=== PATIENT | male | born 1985 | race African-American/Black ===

== ENCOUNTER 2020-01-14 17:52 | Emergency (ER) | payer MEDICARE, MEDICAID, SELFPAY ==
[2020-01-14 18:03] VITALS: BP 147/90; PULSE 77; RESP 20; TEMP 36.9; O2SAT 100
--- NOTE | 2020-01-14 18:47 | ED.GENADULT ---
HPI - General Adult General Chief complaint: Unspecified Stated complaint: lump behind left ear Time Seen by Provider: 01/14/20 17:56 Source: patient Mode of arrival: ambulatory Limitations: no limitations History of Present Illness HPI narrative: Patient is a 34-year-old male who presents with concern of wound to the posterior aspect of the left ear that he noticed last night googled it and was concerned that it could be cancer notes mild discomfort denies history of similar occurrence has not taken anything for his symptoms nor is he been seen for this complaint patient presents per private vehicle Related Data Allergies Allergy/AdvReac Type Severity Reaction Status Date / Time No Known Allergies Allergy Unverified 03/07/17 23:51 Review of Systems Review of Systems: Narrative: CONSTITUTIONAL: Denies fever, chills, or sweats. SKIN: Denies rash or itching. MUSCULOSKELETAL: Denies back pain, joint pain, or myalgia. NEUROLOGIC: Denies headache, dizziness Exam Narrative: Exam Narrative: GENERAL: Well-appearing, well-nourished, and in no acute distress. HEAD: Normocephalic, atraumatic. EYES: PERRLA and EOMI. ENT: Nares clear, no rhinorrhea or epistaxis. Mucous membranes moist. EXTREMITIES: Normal range of motion. No edema. SKIN: Warm, dry, no rash. Small red raised lesion to the posterior left ear less than 1/2 cm no cellulitic changes NEURO: No focal deficits. Alert and oriented x3. PSYCH: Normal mood and affect. Course Course Emergency Course: Patient in the room in no distress aware of case findings treatment plan and diagnosis agreeing to follow-up as directed or to return if symptoms worsen or concerns Vital Signs Vital signs: Vital Signs Temperature 98.5 F 01/14/20 18:03 Pulse Rate 77 01/14/20 18:03 Respiratory Rate 20 01/14/20 18:03 Blood Pressure 147/90 H 01/14/20 18:03 Pulse Oximetry 100 01/14/20 18:03 Temperature 98.5 F 01/14/20 18:03 Pulse Rate 77 01/14/20 18:03 Respiratory Rate 20 01/14/20 18:03 Blood Pressure 147/90 H 01/14/20 18:03 Pulse Oximetry 100 01/14/20 18:03 Medical Decision Making MDM Narrative Medical decision making narrative: Patient with likely insect bite to her small pustule no distress felt appropriate for discharge home Vital Signs Vital Signs: Vital Signs Temperature 98.5 F 01/14/20 18:03 Pulse Rate 77 01/14/20 18:03 Respiratory Rate 20 01/14/20 18:03 Blood Pressure 147/90 H 01/14/20 18:03 Pulse Oximetry 100 01/14/20 18:03 Temperature 98.5 F 01/14/20 18:03 Pulse Rate 77 01/14/20 18:03 Respiratory Rate 20 01/14/20 18:03 Blood Pressure 147/90 H 01/14/20 18:03 Pulse Oximetry 100 01/14/20 18:03 Discharge Plan Discharge Clinical Impression: Visit for wound check Patient Disposition: Home, Self-Care Condition: Stable Instructions: Antibiotic Form, Acute Wounds (DC) Additional Instructions: Follow up with primary care in the next 5 to 7 days Follow patient education sheets return if symptoms worsen or concerns, any increase in redness swelling pain or fever over 100.5 Clean wound with mild soapy water. Apply antibiotic ointment and clean dressing at least three times daily Follow-up/Referrals: Jamie,Emily Newsome MD [Primary Care Provider] -
== END 2020-01-14 19:01 | disposition home or self-care (01) ==
LOC: ANHED 19:03
PROVIDERS: Emergency Provider Emergency Medicine; PCP Family Medicine
DX: S01.302A Unspecified open wound of left ear, initial encounter (principal); X58.XXXA Exposure to other specified factors, initial encounter
CPT/HCPCS: 99281

== ENCOUNTER 2020-05-11 11:07 | Emergency (ER) | payer MEDICARE, MEDICAID, SELFPAY ==
[2020-05-11 11:41] VITALS: RESP 18
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
[2020-05-11] MEDS: LORAZEPAM INJ 2 MG/ML VIAL IM (12:05)
[2020-05-11] MEDS: HALOPERIDOL LACTATE 5 MG/ML VIAL IM (12:05)
--- NOTE | 2020-05-11 12:05 | PC.NURSE ---
While administering medication to Pt. Pt stated to RN that I was a dumb bitch and a Faggot ass . Pt. advised that kind of language is not tolerated here in the ED. See MAR for medication administration. Reason to give medication due to Pt. being uncooperative, hostile, aggressive, and combative towards staff. [facility] security and [place] [employer] at the bedside with Pt.
[2020-05-11 12:19] LABS: Basophils Percent Auto 0.6 % (0.2-1.2); Eosinophils Percent Auto 0.6 % (0-4.4); Hemoglobin 15.5 g/dL (14.0-18.0); Immature Granulocyte Absolute 0.01 K/mm3 (0.00-0.031); Immature Granulocyte Percent A 0.2 % (0-0.5); Immature Platelet Fraction Pct 4.4 % (0.9-11.2); Lymphocytes Absolute Auto 2.57 K/mm3 (0.9-3.2); Lymphocytes Percent Auto 47.7 % (18.3-44.2); Mean Corpuscular HGB Conc 32.3 g/dl (32-36); Mean Corpuscular Hemoglobin 27.7 pg (26-34); Mean Corpuscular Volume 85.9 fl (80-100); Mean Platelet Volume 10.6 fl (7.4-10.4); Monocytes Absolute Auto 0.4 K/mm3 (0.1-0.6); Monocytes Percent Auto 6.7 % (2.6-8.5); Neutrophils Absolute Auto 2.4 K/mm3 (1.3-6.7); Neutrophils Percent Auto 44.2 % (45.5-73.1); Platelet Count Result 185 k/mm3 (150-375); Red Blood Count 5.59 M/mm3 (4.6-6.20); Red Cell Distribution Width 13.7 % (11.5-14.5); White Blood Count 5.4 K/mm3 (4.5-10.0)
[2020-05-11 12:30] LABS: Alanine Aminotransferase 23 U/L (4-50); Albumin Level 4.4 g/dL (3.5-5.1); Alkaline Phosphatase 54 U/L (38-126); Aspartate Amino Transferase 28 U/L (17-59); Bilirubin,Total 0.2 mg/dL (0.2-1.3); Blood Urea Nitrogen 10 mg/dL (9-20); Carbon Dioxide 22 mmol/L (22-30); Chloride 106 mmol/L (98-107); Estimated Glomerular Filt Rate > 60; Glucose 138 mg/dL (75-110); Potassium 4.2 mmol/L (3.4-5.0); Sodium 137 mmol/L (137-145)
[2020-05-11 12:44] LABS: Add Urine Microscopic? YES; Appearance Urine Clear (Clear); Bilirubin Urine Negative (Negative); Blood Urine Negative (Negative); Color Urine Yellow (Yellow); Glucose Urine UA Negative (Negative); Ketones Urine Negative (Negative); Leukocyte Esterase Ur Negative LEU/UL (Negative); Mucus Urine Rare /lpf; Nitrate Urine Negative (Negative); Protein Urine 1+ mg/dL (Negative); RBC Urine 0-2 /hpf (0-2); Specific Grav Ur 1.026 (1.001-1.035); Urobilinogen Urine Negative mg/dL (<2.0); WBC Urine 0-3 /hpf
[2020-05-11 13:00] LABS: Amphetamine Screen Urine Negative (Negative); Barbiturate Screen Urine Negative (Negative); Benzodiazepines Screen Urine Negative (Negative); Cannabinoid Screen Urine Negative (Negative); Cocaine Screen Urine Negative (Negative); Methadone Screen Urine Negative (Negative); Opiate Screen Urine Negative (Negative); Phencyclidine Screen Urine Negative (Negative)
[2020-05-11 13:33] LABS: Ethanol < 10 mg/dL (<10)
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
[2020-05-11 15:05] VITALS: RESP 16
== END 2020-05-11 15:05 | disposition home or self-care (01) ==
PROVIDERS: Emergency Provider Emergency Medicine; PCP Family Medicine
DX: F29 Unspecified psychosis not due to a substance or known physiological condition (principal); F17.200 Nicotine dependence, unspecified, uncomplicated; Z87.820 Personal history of traumatic brain injury; Z79.899 Other long term (current) drug therapy
CPT/HCPCS: 36415; 80053; 80307; 81001; 84443; 85025; 85055; 96372; 99284; J1630; J2060

== ENCOUNTER 2020-08-14 14:42 | Emergency (ER) | payer MEDICARE, MEDICAID, SELFPAY ==
--- NOTE | ~2020-08-14 | XR_ITS ---
EXAMINATION: XR wrist LT min 3V EXAM DATE: 08/14/2020 15:19 INDICATION: Initial encounter following injury, with pain of the left wrist. TECHNIQUE: Frontal, oblique, lateral projections of the left wrist. There is no prior study for mello hatfield. FINDINGS: Acute closed posttraumatic fracture of the left ulnar distal metaphysis which is essential ly nondisplaced. No definite radial fracture identified. Carpal bones are unremarkable. IMPRESSION: Acute left ulnar distal metaphyseal fracture. Reviewed, dictated and finalized at location B.
[2020-08-14 14:47] VITALS: BP 127/78; PULSE 87; RESP 20; TEMP 37; O2SAT 100
--- NOTE | 2020-08-14 15:21 | PC.NURSE ---
Pt acting inappropriate, rambling speech, pacing in waiting room. Mother with pt.
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
--- NOTE | 2020-08-14 17:19 | PC.NURSE ---
Pt refuses wrist splint. States I don't want anything I'm going to have to pay for . Pt in hallway raising voice to staff and PA. Security at bedside.
== END 2020-08-14 17:22 | disposition home or self-care (01) ==
PROVIDERS: Emergency Provider Emergency Medicine; PCP Family Medicine
DX: S59.092A Other physeal fracture of lower end of ulna, left arm, initial encounter for closed fracture (principal); F17.200 Nicotine dependence, unspecified, uncomplicated; Y35.813A Legal intervention involving manhandling, suspect injured, initial encounter
CPT/HCPCS: 73110; 99283

== ENCOUNTER 2021-07-03 04:42 | Emergency (ER) | payer MEDICARE, MEDICAID, SELFPAY ==
[2021-07-03 04:46] VITALS: BP 153/98; PULSE 82; RESP 16; TEMP 36.6; O2SAT 99
--- NOTE | 2021-07-03 05:09 | ED.GENADULT ---
HPI - General Adult General Chief complaint: Unspecified Stated complaint: sore on lip Time Seen by Provider: 07/03/21 05:05 History of Present Illness HPI narrative: Patient 36-year-old gentleman presents emergency department with chief complaint of cold sore. Patient reports that he has history of cold sores and normally takes either acyclovir or valacyclovir patient states has been out of his medication attempted to follow-up with his primary doctor but they are on personal leave and the doctor covering for them is unable to see him until July Related Data Allergies Allergy/AdvReac Type Severity Reaction Status Date / Time No Known Allergies Allergy Verified 08/14/20 15:50 Review of Systems Review of Systems: A 10 system review of systems was completed on the patient and is negative except for what is stated in the HPI. Nursing and ancillary documentation was reviewed. [facility] Past Medical History Medical History (Updated 07/03/21 @ 05:14 by Josue Valencia MD) History of head injury Surgical History Surgical History No pertinent past surgical history Social History Social History Smoking status: Current every day smoker Alcohol intake: never Substance use: never Exam Narrative: GENERAL: Well-appearing, well-nourished, and in no acute distress. HEAD: Normocephalic, atraumatic. EYES: PERRLA and EOMI. ENT: Nares clear, no rhinorrhea or epistaxis. Mucous membranes moist. There are blisters present in the oropharynx on the lip consistent with herpes labialis NECK: Supple. CHEST: Clear to auscultation. No respiratory distress. HEART: Regular rate and rhythm. No murmur heard. Normal peripheral pulses. ABDOMEN: Soft, nontender, nondistended, normal active bowel sounds. EXTREMITIES: Normal range of motion. No edema. SKIN: Warm, dry, no rash. NEURO: No focal deficits. Alert and oriented x3. PSYCH: Normal mood and affect. Course Vital Signs Vital signs: Vital Signs Temperature 36.6 C 07/03/21 04:46 Pulse Rate 82 07/03/21 04:46 Respiratory Rate 16 07/03/21 04:46 Blood Pressure 153/98 H 07/03/21 04:46 Pulse Oximetry 99 07/03/21 04:46 Temperature 36.6 C 07/03/21 04:46 Pulse Rate 82 07/03/21 04:46 Respiratory Rate 16 07/03/21 04:46 Blood Pressure 153/98 H 07/03/21 04:46 Pulse Oximetry 99 07/03/21 04:46 Medical Decision Making Vital Signs Vital Signs: Vital Signs Temperature 36.6 C 07/03/21 04:46 Pulse Rate 82 07/03/21 04:46 Respiratory Rate 16 07/03/21 04:46 Blood Pressure 153/98 H 07/03/21 04:46 Pulse Oximetry 99 07/03/21 04:46 Temperature 36.6 C 07/03/21 04:46 Pulse Rate 82 07/03/21 04:46 Respiratory Rate 16 07/03/21 04:46 Blood Pressure 153/98 H 07/03/21 04:46 Pulse Oximetry 99 07/03/21 04:46 Discharge Plan Discharge Clinical Impression: Herpes labialis Patient Disposition: Home, Self-Care Condition: Stable Instructions: Antibiotic Form, Oral Herpes Simplex Virus Infections (ED) Prescriptions: New acyclovir 400 mg tablet 400 mg PO TID 7 Days Qty: 21 RF: 0 Follow-up/Referrals: Jamie,Emily Newsome MD [Primary Care Provider] - Time of Disposition: 05:15
== END 2021-07-03 05:43 | disposition home or self-care (01) ==
LOC: ANHED 05:22
PROVIDERS: Emergency Provider Emergency Medicine; PCP Family Medicine
DX: B00.1 Herpesviral vesicular dermatitis (principal); F17.200 Nicotine dependence, unspecified, uncomplicated
CPT/HCPCS: 99283

== ENCOUNTER 2023-05-13 15:16 | Emergency (ER) | payer MEDICARE, MEDICAID, SELFPAY ==
[2023-05-13 15:40] VITALS: BP 139/95; PULSE 103; RESP 16; TEMP 36.9; O2SAT 97
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
== END 2023-05-13 16:41 | disposition home or self-care (01) ==
PROVIDERS: Emergency Provider Emergency Medicine; PCP Family Medicine
DX: T21.02XA Burn of unspecified degree of abdominal wall, initial encounter (principal); T31.0 Burns involving less than 10% of body surface; F17.200 Nicotine dependence, unspecified, uncomplicated; Z87.820 Personal history of traumatic brain injury; X10.2XXA Contact with fats and cooking oils, initial encounter
CPT/HCPCS: 99281

== ENCOUNTER 2025-02-05 09:43 | Outpatient (CLI) | payer MEDICARE, SELFPAY ==
--- OUTSIDE RECORDS SUMMARY | 2025-02-05 10:57 | XMS_ITS | Clinical Summary ---
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 08/20/2020 Within the last year, have y ou been raped or forced to have any kind of sexual activity by your partner or ex-partner? No 08/20/2020 Social Connection and Isolation Panel [NHANES] A nswer Date Recorded In a typical week, how many times do you talk on the phone with family, friends, or neighbors? Patient declined 08/20/2020 How often do you get togethe r with friends or relatives? Patient declined 08/20/2020 How often do you attend christian or buddhism serv ices? Patient declined 08/20/2020 Do you belong to any clubs o r organizations such as christian groups, unions, fraternal or athletic groups, or school groups? Patient declined 08/20/2020 How often do you attend meet ings of the clubs or organizations you belong to? Patient declined 08/20/2020 Are you , , di vorced, , never , or living with a partner? Patient declined 08/20/2020 Overall Financial Resource Strain (CARDIA) Answe r Date Recorded How hard is it for you to pa y for the very basics like food, housing, medical care, and heating? Not hard at all 08/20/2020 [facility] of Occupat ional Health - Occupational Stress Questionnaire Answer Date Recorded Do you feel stress - tense, restless, nervous, or anxious, or unable to sleep at night because your mind is troubled all the time - these days? Patient declined 08/20/2020 Exercise Vital Sign Answer Date Recorde d On average, how many days pe r week do you engage in moderate to strenuous exercise (like a brisk walk)? Patient declined On average, how many minutes do you engage in exercise at this level? Patient declined 08/20/2020 Hunger Vital Sign Answer Date Recorded Within the past 12 months, y ou worried that your food would run out before you got the money to buy more. Never true 08/20/20 20 Within the past 12 months, t he food you bought just didn't last and you didn't have money to get more. Never true 08/20/2020 PRAPARE - Transportation Answer Date Re corded In the past 12 months, has l ack of transportation kept you from medical appointments or from getting medications? No 11/2019 In the past 12 months, has l ack of transportation kept you from meetings, work, or from getting things needed for daily living? No 08/20/2020 Housing Stability Vital Sign Answer Melo e Recorded In the last 12 months, was t here a time when you were not able to pay the mortgage or rent on time? No 08/20/2020 Number of Places Lived in the Last Year Not on f ile 08/20/2020 In the last 12 months, was t here a time when you did not have a steady place to sleep or slept in a group home (including now)? No 08/20/2020 Personal Safety Answer Date Recorded Have you ever been in or are you currently in a harmful physical or emotional relationship or is someone making you feel afraid or unsafe? Denies 06/21/2024 Education Answer Date Recorded What is the highest level of school you have completed or the highest degree you have received? 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 Gender Identity Not on file Sexual Orientation Not on file Obstetrics History Last Filed Vital Signs Vital Sign Reading Time Taken Comments Blood Pressure 138/70 06/21/2024 1:25 AM CDT Pulse 124 06/21/2024 1:25 AM CDT Temperature 38 C (100.4 F) 06/21/2024 1:21 AM CDT Respiratory Rate 18 06/21/2024 12:52 AM CDT Oxygen Saturation 96% 06/21/2024 1:25 AM CDT Inhaled Oxygen Concentration - - Weight 119.3 kg (263 lb) 06/21/2024 12:52 AM CDT Height 182.9 cm (6') 06/21/2024 12:52 AM CDT Body Mass Index 35.67 06/21/2024 12:52 AM CDT Plan of Treatment Health Maintenance Due Date Last Done Comments Depression Screening 1987 Hepatitis C Screening 1987 Varicella Vaccines (1 of 2 - 13+ 2-dose series) 01/19/2000 Hepatitis B Screening 2005 Regular Well Visit/Exam 18-64 2005 Pneumococcal vaccine <65 (1 of 2 - PCV) 2006 Covid-19 Vaccine (3 - 2023-2 5 season) 2024 03/31/2021, 02/26/2021 Influenza Vaccine (#1) 2024 0, 09/07/2015, 08/28/2014 DTaP/Tdap/Td Vaccine (3 - Td or Tdap) 12/30/2024 12/30/2014, 11/20/2013 HPV Vaccines Aged Out No longer eligi ble based on patient's age to complete this topic Insurance MEDIC[facility] MEDICARE HMO MEDICARE [place] Advance Directives For more information, please contact: [phone] * Full Code (Latest Code Status on File) Date Activated Date Inactivated Comments 08/19/2020 4:14 PM 09/16/2020 3:53 PM Care Teams Posting Clerk Relationship Specialty Start Date End Date Rose Pineda PA [address] [place] [id number] PCP - General Physician Prefabricated Houses Trimmer 06/21/24
--- OUTSIDE RECORDS SUMMARY | 2025-02-05 10:57 | XMS_ITS | Clinical Summary ---
Author Organization [facility] Address [address] [place] [address] Phone Care Team Providers Care Neonatal Surgeon Name Role Phone Provider, None Primary Care Provider Unavailabl e Allergies No known active allergies Medications traZODone (DESYREL) 100 MG Tablet Take 50 mg by mouth as needed for Sleep. Active chlorhexidine (PERIDEX) 0.12 % Solution Take 15 mL by mouth 2 times daily. 473 mL 0 08/05/2016 Active ibuprofen (MOTRIN) 800 MG Tablet Take 1 Tab by mouth every 8 hours. 30 Tab 0 08/05/2016 Active famotidine (PEPCID) 20 MG Tablet Take 1 Tab by mouth 2 times daily as needed. 30 Tab 0 08/05/2016 Active traZODone (DESYREL) 100 MG Tablet Take 1 Tab by mouth nightly. 15 Tab 0 02/28/2017 Active divalproex (DEPAKOTE) 500 MG Tablet Delayed Response Take 2 Tabs by mouth nightly. 90 Tab 0 03/29/2017 Active Active Problems No known active problems Social History Tobacco Use Types Packs/Day Years Used Date Smoking Tobacco: Every Day Cigarettes Smokeless Tobacco: Never Alcohol Use Standard Drinks/Week Comments No 0 (1 standard drink = 0.6 oz pur e alcohol) Sex and Gender Information Value Date Recorded Sex Assigned at Not on file Legal Sex Male 11:47 PM CDT Gender Identity Not on file Sexual Orientation Not on file Last Filed Vital Signs Vital Sign Reading Time Taken Comments Blood Pressure 128/83 08/18/2020 9:06 AM CDT Pulse 76 08/18/2020 9:06 AM CDT Temperature 36.2 C (97.1 F) 08/18/2020 9:06 AM CDT Respiratory Rate 20 08/18/2020 9:06 AM CDT Oxygen Saturation 100% 08/18/2020 9:06 AM CDT Inhaled Oxygen Concentration - - Weight 119.3 kg (263 lb) 08/18/2020 9:06 AM CDT Height 180.3 cm (5' 11 ) 08/18/2020 9:06 AM CDT Body Mass Index 36.68 08/18/2020 9:06 AM CDT Plan of Treatment Health Maintenance Due Date Last Done Comments Hepatitis C Virus (HCV) Screening 1987 TdaP Immunization 1987 Hepatitis B Immunization (1 of 3 - 19+ 3-dose series) 2006 Influenza Immunization (#1) 2024 SARS-COV-2 Immunization (2023- season) 2024 Respiratory Syncytial Virus (RSV) Immunization (Adult) (1 - 1-dose 75+ series) 2062 Meningococcal Immunization (ACWY) Aged Out No longer eligible based on patient's age to complete this topic Pneumococcal Immunization Combined Aged Out No longer eligible based on patient's age to complete this topic Rotavirus Immunization Aged Out No lo nger eligible based on patient's age to complete this topic Insurance MEDICAID [place] MEDICARE Care Teams Neonatal Surgeon Relationship Specialty Start Date End Date Provider, Natalie GUTHRIE PCP - General 07/05/17
--- OUTSIDE RECORDS SUMMARY | 2025-02-05 10:57 | XMS_ITS | Clinical Summary ---
Author Organization [facility] Address [address] [place] [address] Care Team Providers Care Hoisting Laborer Name Role Phone Unavailable Primary Care Provider Unavailabl e Source Comments [facility],non-owned Affiliates and Associated Physician Practices is amultiple site organization consisting of ambulatory clinics and hospital sitesin [place], [place], [place] and [place]. This disclosure is being madepursuant to the Care Everywhere program and may not contain all information available regarding this patient. Last updated 18.[facility] Social History Tobacco Use Types Packs/Day Years Used Date Smoking Tobacco: Every Day Cigarettes Alcohol Use Standard Drinks/Week Comments Yes 0 (1 standard drink = 0.6 oz pur e alcohol) Sex and Gender Information Value Date Recorded Sex Assigned at Not on file Gender Identity Not on file Sexual Orientation Not on file Last Filed Vital Signs Vital Sign Reading Time Taken Comments Blood Pressure 129/74 02/24/2016 6:30 AM CDT Pulse 71 02/24/2016 6:40 AM CDT Temperature 36.7 C (98.1 F) 02/24/2016 4:34 AM CDT Respiratory Rate 14 02/24/2016 6:40 AM CDT Oxygen Saturation 99% 02/24/2016 6:40 AM CDT Inhaled Oxygen Concentration - - Weight 93 kg (205 lb) 02/24/2016 4:50 AM CDT Height 182.9 cm (6') 02/24/2016 4:50 AM CDT Body Mass Index 27.8 02/24/2016 4:50 AM CDT Plan of Treatment Health Maintenance Due Date Last Done Comments HIV SCREENING 2002 HEPATITIS C SCREENING 01/13/2005 DTAP/TDAP/TD VACCINES (1 - Tdap) 2006 HEPATITIS B VACCINE (1 of 3 - 19+ 3-dose series) 2006 COVID-19 VACCINE (2023-2 5 season) 2024 INFLUENZA VACCINE (#1) 2024 DEPRESSION SCREENING 11/20/2024 ZOSTER VACCINE (1 of 2) 2037 HIB VACCINE Aged Out No longer eligi ble based on patient's age to complete this topic HPV VACCINE Aged Out No longer eligi ble based on patient's age to complete this topic MENINGOCOCCAL (Group B) VACC INE SHARED DECISION-MAKING Aged Out No longer eligibl e based on patient's age to complete this topic MENINGOCOCCAL GROUPS A/C/Y/W VACCINE Aged Out No longer eligible b ased on patient's age to complete this topic PNEUMOCOCCAL VACCINE Aged Out No long er eligible based on patient's age to complete this topic
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
--- NOTE | 2025-02-05 14:51 | WPDPFTINT ---
PFT Procedure Performed PFT Procedure Performed Plethysmography (Lung Vol) Diffusing Cap (DLCO) Flow Vol Loop Spirometry w/o Bronchodil PFT Interpretation Lung volumes were assessed using body plethysmography and found to be unremarkable. Spirometry revealed a reduced FEV1, with a low-normal FEV1/FVC ratio of 72%. A post-bronchodilator study was not performed. The lung diffusion capacity is normal at 78% of the predicted value. The flow-volume loop appears unremarkable. The decreased FEV1, along with the borderline FEV1/FVC ratio, may indicate a subtle obstructive airway disease. It is advisable to consider remeasuring spirometry with post-bronchodilator study to further evaluate the potential presence of underlying obstructive airway disease. Impression: Possible mild obstructive airway disease. Consider conducting spirometry with post-bronchodilator study. Lung diffusion capacity is within the normal range.
== END 2025-02-05 09:44 | disposition home or self-care (01) ==
PROVIDERS: PCP Physician Assistant; Visit Provider Physician Assistant
DX: R06.2 Wheezing (principal)
CPT/HCPCS: 94375; 94726; 94729